=== PATIENT | female | born 1970 | race Caucasian/White ===

== ENCOUNTER → 2016-08-26 | Outpatient (CLI) | payer OTHER ==
[~2016-08-26] MED LIST: BUPR1SUB23 PO; CLIN300C2 PO; GABA-112 PO; GABA-113 PO; GABA1CAP5 PO; OXYC5TAB PO; QUET400T2 PO
[2016-08-26 12:33] LABS: BLOOD UREA NITROGEN 10 mg/dl (7-18); BUN/CREATININE RATIO 13.2 (10-20); CALCIUM 9.1 mg/dl (8.5-10.1); CARBON DIOXIDE 29 mmol/L (21-32); CHLORIDE 103 mmol/L (98-107); CREATININE 0.75 mg/dl (0.60-1.20); GLUCOSE 113 mg/dl (70-99); POTASSIUM 3.9 mmol/L (3.5-5.1); SODIUM 140 mmol/L (136-145)
[2016-08-26 12:41] LABS: BENZODIAZEPINE, URINE POS (NEG); COCAINE,URINE NEG (NEG); PHENCYCLIDINE, URINE NEG (NEG)
[2016-08-26 13:42] LABS: ALKALINE PHOSPHATASE 92 U/L (45-117); ALT/SGPT 29 U/L (12-78); AST/SGOT 18 U/L (15-37); CHOLESTEROL 177 mg/dl (0-200); CHOLESTEROL/HDL RATIO 3.7; HDL CHOLESTEROL 48 mg/dl; LDL CHOLESTEROL CALCULATED 85 mg/dl; TRIGLYCERIDES 222 mg/dl (0-150); VERY LOW DENSITY LIPOPROT CALC 44 mg/dl
[2016-08-30 11:40] LABS: COD UR NEGATIVE NG/ML (CUTOFF=50); HYDROCOD UR NEGATIVE NG/ML (CUTOFF=50); HYDROMOR UR NEGATIVE NG/ML (CUTOFF=50); HYDROXYETHYLFLURAZEPAM CONF NEGATIVE NG/ML (CUTOFF=50); HYDROXYMIDAZOLAM NEGATIVE NG/ML (CUTOFF=50); HYDROXYTRIAZOLAM CONF NEGATIVE NG/ML (CUTOFF=50); MORPHINE UR 660 NG/ML (CUTOFF=50); NORBUPRENORPHINE QNT 237 NG/ML (CUTOFF=2); NORHYDROCODONE CONF UR NEGATIVE NG/ML (CUTOFF=50); OXYMORPH UR NEGATIVE NG/ML (CUTOFF=50); TEMAZEPAM CONF NEGATIVE NG/ML (CUTOFF=50)
== END | disposition home or self-care (01) ==
LOC: C.LAB 11:35
PROVIDERS: ATTEND Psychiatry & Neurology Psychiatry
DX: F11.20 Opioid dependence, uncomplicated (principal); Z79.899 Other long term (current) drug therapy

== ENCOUNTER 2016-11-15 10:48 | Emergency (ER) | payer OTHER ==
[~2016-11-15] VITALS: Ht 162.6 cm; Wt 80.5 kg
[~2016-11-15 10:48] MED LIST changes: -CLIN300C2 PO; -GABA1CAP5 PO
[2016-11-15 10:59] VITALS: BP 135/83; TEMP 36.9; Ht 162.6 cm; Wt 80.5 kg
[2016-11-15] MEDS ORDERED: GABA1CAP5 PO (11:08)
[2016-11-15] MEDS ORDERED: GABA-113 PO (11:08)
--- NOTE | 2016-11-15 11:57 | EMERGENCY ROOM VISIT NOTE ---
ED Visit Note First contact with patient: 11:12 CHIEF COMPLAINT: Infection of the right forearm HISTORY OF PRESENT ILLNESS: This 46-year-old female patient presents to the emergency department after they noticed a hard, red, tender area over the past few days. It is slowly getting larger, more painful and tender. No fever, chills, or loss of appetite. There has been no drainage from the area. There was no known injury to the area preceding the infection. They rate the pain as aching and 8/10. Tetanus shot is up to date. They have tried Advil for the pain, last dose last night, minimal relief. The patient is not diabetic. The patient has no history of subcutaneous abscesses. REVIEW OF SYSTEMS: A review of systems was performed with positives and pertinent negatives listed in the history of present illness. All other systems were reviewed and are negative. ALLERGIES: See chart MEDICATIONS: See chart PMH: See chart SOCIAL HISTORY: See chart PHYSICAL EXAM: Vital Signs: Reviewed Nurse's notes, vital signs stable. GENERAL : Pleasant and cooperative, no acute distress, non toxic in appearance, well- developed well-nourished. SKIN: There is an erythematous indurated area on the anterior right forearm which measures about 4 cm in diameter. It is fluctuant but there is no pointing or drainage. There is surrounding area of cellulitis measuring approximately 8 x 15 cm. Capillary refill less than 2 seconds. MUSCULOSKELETAL: There is no limitation of the range of motion of the elbow or wrist of the right arm. EMERGENCY DEPARTMENT COURSE: I examined the patient. Pt did leave the department after being placed in a patient room, staff was unable to locate her for 30 minutes, after which time she did come back to the room stating she went out for a smoke. See nursing documentation for additional information. Verbal consent was obtained to perform the procedure. After saline and Betadine cleansing and 1 mL of 1% buffered lidocaine with epinephrine anesthesia, the abscess was incised with a number 15 scalpel blade. A large amount of purulent material was released with more expressed by pressure. A swab was obtained for culture. The abscess cavity was further probed with a needle security patrol driver and the deep pocket expressed. The abscess cavity was then copiously irrigated with sterile saline under pressure. The area was then packed with bacitracin soaked packing. The area of cellulitis was outlined with a skin marker. The area was cleaned with sterile saline and dressed with bacitracin and a bulky bandage. The patient tolerated the procedure well and reported significant relief of pain after drainage of the abscess. Patient was instructed to follow-up in 48 hours to have the packing removed and have the abscess reassessed due to the area of surrounding cellulitis. Labs were reviewed, mild hypokalemia, no other significant abnormalities and normal WBC count. Patient was given IV dose of clindamycin and sent with prescription for PO clindamycin. The patient was discharged home in stable condition and ambulatory. Current/Historical Medications Scheduled Buprenorphine Hcl-Naloxone Hcl (Suboxone 8-2 Mg), 16 MG PO QAM Clindamycin Hcl (Cleocin), 300 MG PO QID Gabapentin (Neurontin), 300 MG PO TID Gabapentin (Neurontin), 400 MG PO TID Quetiapine Fumarate (Seroquel Xr), 400 MG PO HS Allergies Coded Allergies: No Known Allergies (Verified , 01/11/16) Vital Signs Date Time Temp Pulse Resp B/P (MAP) Pulse Ox O2 Delivery O2 Flow Rate FiO2 11/15/16 13:57 80 18 96 Room Air 11/15/16 10:59 36.9 117 18 135/83 94 Room Air Laboratory Results 11/15/16 12:50 Red Blood Count 4.63, Mean Corpuscular Volume 86.2, Mean Corpuscular Hemoglobin 30.5, Mean Corpuscular Hemoglobin Concent 35.3, Mean Platelet Volume 10.9, Neutrophils (%) (Auto) 61.5, Lymphocytes (%) (Auto) 28.6, Monocytes (%) (Auto) 9.1, Eosinophils (%) (Auto) 0.4, Basophils (%) (Auto) 0.2, Neutrophils # (Auto) 6.02, Lymphocytes # (Auto) 2.80, Monocytes # (Auto) 0.89, Eosinophils # (Auto) 0.04, Basophils # (Auto) 0.02 11/15/16 12:50 Test 11/15/16 12:40 11/15/16 12:50 Urine Color DK YELLOW Urine Appearance CLEAR (CLEAR) Urine pH 5.5 (4.5-7.5) Urine Specific Paulina 1.025 (1.000-1.030) Urine Protein NEG (NEG) Urine Glucose (UA) NEG (NEG) Urine Ketones TRACE (NEG) Urine Occult Blood NEG (NEG) Urine Nitrite NEG (NEG) Urine Bilirubin NEG (NEG) Urine Urobilinogen NEG (NEG) Urine Leukocyte Esterase SMALL (NEG) Urine WBC (Auto) 10-30 /hpf (0-5) Urine RBC (Auto) 0-4 /hpf (0-4) Urine Hyaline Casts (Auto) 1-5 /lpf (0-5) Urine Epithelial Cells (Auto) >30 /lpf (0-5) Urine Bacteria (Auto) NEG (NEG) Urine Opiates Screen NEG (NEG) Urine Methadone, Qualitative NEG (NEG) Urine Barbiturates NEG (NEG) Urine Phencyclidine (PCP) Level NEG (NEG) Ur Amphetamine/Methamphetamine NEG (NEG) MDMA (Ecstasy) Screen NEG (NEG) Urine Benzodiazepines Screen POS (NEG) Urine Cocaine Metabolite NEG (NEG) Urine Marijuana (THC) NEG (NEG) White Blood Count 9.79 K/uL (4.8-10.8) Red Blood Count 4.63 M/uL (4.2-5.4) Hemoglobin 14.1 g/dL (12.0-16.0) Hematocrit 39.9 % (37-47) Mean Corpuscular Volume 86.2 fL (80-100) Mean Corpuscular Hemoglobin 30.5 pg (25-34) Mean Corpuscular Hemoglobin Concent 35.3 g/dl (32-36) Platelet Count 241 K/uL (130-400) Mean Platelet Volume 10.9 fL (7.4-10.4) Neutrophils (%) (Auto) 61.5 % Lymphocytes (%) (Auto) 28.6 % Monocytes (%) (Auto) 9.1 % Eosinophils (%) (Auto) 0.4 % Basophils (%) (Auto) 0.2 % Neutrophils # (Auto) 6.02 K/uL (1.4-6.5) Lymphocytes # (Auto) 2.80 K/uL (1.2-3.4) Monocytes # (Auto) 0.89 K/uL (0.11-0.59) Eosinophils # (Auto) 0.04 K/uL (0-0.5) Basophils # (Auto) 0.02 K/uL (0-0.2) RDW Standard Deviation 42.9 fL (36.4-46.3) RDW Coefficient of Variation 13.5 % (11.5-14.5) Immature Granulocyte % (Auto) 0.2 % Immature Granulocyte # (Auto) 0.02 K/uL (0.00-0.02) Anion Gap 10.0 mmol/L (3-11) Est Creatinine Clear Calc Drug Dose 87.9 ml/min Estimated GFR () 98.7 Estimated GFR (Non- 85.2 BUN/Creatinine Ratio 12.8 (10-20) Calcium Level 8.7 mg/dl (8.5-10.1) Medications Administered Medications (Trade) Dose Ordered Sig/Amadeo Route Start Time Stop Time Status Last Admin Dose Admin Sodium Chloride 1,000 ml @ 999 mls/hr Q1H1M STAT IV 11/15/16 12:06 11/15/16 13:06 DC 11/15/16 12:55 999 MLS/HR Clindamycin Phosphate (Cleocin 600mg/ 54ml D5W) 600 mg ONE ONCE IV 11/15/16 12:15 11/15/16 12:16 DC 11/15/16 13:54 600 MG Ketorolac Tromethamine (Toradol Inj) 15 mg NOW STAT IV 11/15/16 12:06 11/15/16 12:11 DC 11/15/16 12:55 15 MG Departure Information Impression Primary Impression: Cellulitis and abscess of upper arm and forearm Dispostion Home / Self-Care Condition GOOD Prescriptions Clindamycin Hcl (CLEOCIN) 300 Mg Cap 300 MG PO QID for 7 Days, #28 CAP Prov: Rosemary Angel CRNP 11/15/16 Referrals Gloria Tripathi C.R.N.P. (PCP) Patient Instructions ED Abscess Joey, My [facility] Additional Instructions Change the dressing if it becomes soiled or blood-stained and place a new dressing as discussed. Clindamycin 300mg Take 1 pill 4 times a day for 7 days to treat your infection. You may take Tylenol or ibuprofen as needed for pain. You may also apply warm compresses to the area to help with pain. Please return to the emergency department for removal of the packing and recheck of your wound. Return sooner if any problems such as fever, spreading redness or swelling, or increasing pain.
[2016-11-15] MEDS ORDERED: KETOROLAC TROMETHAMINE 30 MG/ML VIAL IV STA (12:06)
[2016-11-15] MEDS ORDERED: SODIUM CHLORIDE 0.9% 1000ML 1,000 ML IV STA (12:06)
[2016-11-15] MEDS ORDERED: LIDO/EPINEPHRINE/SOD BICARB 20 ML VIAL INFIL ONE (12:15)
[2016-11-15] MEDS ORDERED: CLINDAMYCIN 600 MG/54 ML D5W IV ONE (12:15)
[2016-11-15 13:05] LABS: BASO % 0.2 %; BASO ABS # 0.02 K/uL (0-0.2); COMPLETE YES; EOS % 0.4 %; HEMATOCRIT 39.9 % (37-47); IG% 0.2 %; LYMPH % 28.6 %; MEAN CELL VOLUME 86.2 fL (80-100); MEAN CORPUSCULAR HEMOGLOBIN 30.5 pg (25-34); MEAN CORPUSCULAR HGB CONC 35.3 g/dl (32-36); MEAN PLATELET VOLUME 10.9 fL (7.4-10.4); MONO % 9.1 %; NEUT % 61.5 %; PLATELET COUNT 241 K/uL (130-400); RED BLOOD COUNT 4.63 M/uL (4.2-5.4); WHITE BLOOD COUNT 9.79 K/uL (4.8-10.8)
[2016-11-15 13:13] LABS: URINE APPEARANCE CLEAR (CLEAR); URINE BILIRUBIN NEG (NEG); URINE COLOR DK YELLOW; URINE EPITHELIAL CELL AUTO >30 /lpf (0-5); URINE NITRITE NEG (NEG); URINE PH 5.5 (4.5-7.5); URINE SPECIFIC GRAVITY 1.025 (1.000-1.030); UROBILINOGEN NEG (NEG)
[2016-11-15 13:20] LABS: BUN/CREATININE RATIO 12.8 (10-20); CALCIUM 8.7 mg/dl (8.5-10.1); CREATININE 0.83 mg/dl (0.60-1.20); POTASSIUM 3.2 mmol/L (3.5-5.1)
[2016-11-15 13:24] LABS: MANUAL MICROSCOPIC REQUIRED? NO; REVIEW REQ? NO
[2016-11-15 13:38] LABS: BENZODIAZEPINE, URINE POS (NEG); COCAINE,URINE NEG (NEG); PHENCYCLIDINE, URINE NEG (NEG)
[2016-11-15 13:57] VITALS: PULSE 80; O2SAT 96
[2016-11-15] MEDS ORDERED: CLIN300C2 PO (14:55)
[2016-11-19 01:56] LABS: HYDROXYETHYLFLURAZEPAM CONF NEGATIVE NG/ML (CUTOFF=50); HYDROXYMIDAZOLAM NEGATIVE NG/ML (CUTOFF=50); HYDROXYTRIAZOLAM CONF NEGATIVE NG/ML (CUTOFF=50); TEMAZEPAM CONF NEGATIVE NG/ML (CUTOFF=50)
--- NOTE | 2016-11-19 12:46 | Pharmacy Progress Note ---
ED Pharmacist Culture FollowUp Date of Service: Nov 19, 2016. Abscess cx of R forearm from 11/15 is growing 4 organisms: 1) kleb oxytoca 2) aeromonas hydrophilia grp 3) MSSA 4) alpha-hemolytic strep She was discharged on Clindamycin 300mg QID x 7 days Provider had reviewed the results yesterday and asked that patient be placed on Keflex 500mg TID x 5 days (in addition to Clindamycin) as kleb and aeromonas likely not covered with current therapy. Two attempts have been made to contact this patient to alert her of results and need for additional abx therapy. Patient's voicemail is full and we are unable to leave message ([phone]). Will ask catalyst unit operator to seen letter to patient for follow-up.
== END 2016-11-15 14:59 | disposition home or self-care (01) ==
LOC: C.EDB 10:49 → C.EDD 14:59
DX: L03.113 Cellulitis of right upper limb (principal); L02.413 Cutaneous abscess of right upper limb; Z79.899 Other long term (current) drug therapy

== ENCOUNTER 2016-11-17 16:02 | Emergency (ER) | payer OTHER ==
[~2016-11-17] VITALS: Ht 162.6 cm; Wt 81.4 kg
[~2016-11-17 16:02] MED LIST changes: +CLIN300C2 PO; -GABA-112 PO; +GABA1CAP5 PO; -OXYC5TAB PO
[2016-11-17 16:07] VITALS: TEMP 36.5; Ht 162.6 cm; Wt 81.4 kg
[2016-11-17 16:30] VITALS: BP 120/73; PULSE 106; O2SAT 95
--- NOTE | 2016-11-17 18:13 | EMERGENCY ROOM VISIT NOTE ---
ED Visit Note First contact with patient: 16:13 CHIEF COMPLAINT: Abscess recheck. HISTORY OF PRESENT ILLNESS: Ms. Hwang is a 46-year-old white female who ambulates into the ED requesting abscess recheck. Historically patient reports she was seen in this emergency department 2 days ago and had a I&D procedure performed for a right forearm abscess. She reports since being discharged she has been feeling much better and feels like her abscess is improving with decreased redness/swelling. Currently she has no complaints and denies fevers, chills, sweats, increasing redness/swelling, red streaking, fevers, puslike drainage from her wound. PHYSICAL EXAM: Vital Signs: Date Time Temp Pulse Resp B/P (MAP) Pulse Ox O2 Delivery O2 Flow Rate FiO2 11/17/16 16:30 106 18 120/73 95 11/17/16 16:07 36.5 106 18 120/73 95 Room Air General: 46-year-old female in no acute distress, nontoxic-appearing, afebrile and hemodynamically stable. Neurological: Awake, alert and oriented 3. Answering questions appropriately and following commands. No focal motor sensory deficits. Right forearm: Shows a well-healing abscess. Erythema and edema are greatly reduced from line of demarcation. No lymphangitis. Packing was removed and no additional purulent material was not able to be drained. On palpation I did not feel any additional fluctuant or indurated areas in the area the laceration. ED COURSE: Patient is assessed as noted above. Patient's medication list was reviewed. Packing was removed from the patient's abscess. A bandage was placed over the patient's abscess. Patient was educated about today's findings and instructed on her treatment plan ; she verbalizes understanding and agreement with this plan. DISPOSITION: Patient discharged home in stable condition. CLINICAL IMPRESSION: Abscess recheck. Packing removal. Well healing abscess. PLAN: Patient was encouraged to continue her current medications. Patient was encouraged to continue her antibiotics until completed. Patient was educated on signs of worsening infection. Patient was encouraged to follow-up with her family doctor on day 10 of her antibiotics for recheck. Patient was encouraged return the ED for signs of increasing infection or any new/concerning symptoms.
== END 2016-11-17 16:31 | disposition home or self-care (01) ==
LOC: C.EDB 16:04 → C.EDD 16:31
DX: Z48.817 Encounter for surgical aftercare following surgery on the skin and subcutaneous tissue (principal)

== ENCOUNTER → 2016-12-06 | Outpatient (CLI) | payer OTHER ==
[~2016-12-06] MED LIST changes: -CLIN300C2 PO
--- NOTE | 2016-12-06 12:18 | DIAGNOSTIC IMAGING REPORT ---
(CHEST) THORAX WITHOUT CLINICAL HISTORY: 46 years-old Female presenting with ABNORMAL FINDING OF LUNG IMAGING. TECHNIQUE: Multidetector CT angiography was performed without the use of intravenous contrast. IV contrast: None. COMPARISON: 02/15/2016 CT DOSE: The estimated cumulative dose is 423.91 mGy.cm. FINDINGS: Olive Brine Tester topogram: Unremarkable. On soft tissue windows, left thyroid lobe nodule again measures 9 mm. Prominent bilateral subpectoral lymph nodes, the largest on the right measuring 11 x 18 mm and essentially stable from prior (series 4 image 59). No axillary, supraclavicular, or mediastinal lymphadenopathy. Vague infiltration in the anterior mediastinum is less prominent on the current exam. Evaluation of the concepcion is limited without intravenous contrast. No significant atherosclerosis of the aorta. Normal heart size. No pericardial or pleural effusion. Upper abdomen normal. On lung windows, previously noted right middle lobe nodule measures 2 mm (series 4 image 157), unchanged. No new pulmonary nodule. Airways patent. On bone windows, normal osseous structures. IMPRESSION: 1. Stable enlarged subpectoral lymph nodes, possibly reactive and of uncertain etiology. Correlate clinically. 2. Stable 2 mm pulmonary nodule for which no further follow-up is warranted. 3. No acute intrathoracic pathology. Electronically signed by: Humberto Vee M.D. 12/06/2016 12:17 PM Dictated Date/Time: 12/06/2016 12:06 PM
== END | disposition home or self-care (01) ==
LOC: C.CTS 11:34
PROVIDERS: ATTEND Nurse Practitioner Adult Health
DX: R91.8 Other nonspecific abnormal finding of lung field (principal); R91.1 Solitary pulmonary nodule; R59.0 Localized enlarged lymph nodes

== ENCOUNTER → 2016-12-31 | Outpatient (CLI) | payer OTHER ==
--- NOTE | 2017-01-01 05:59 | PAP/PSG TECHNICIAN REPORT ---
[facility] Central Control Room Operator Polysomnogram Report Study name: None Report date: 01/01/2017 Study date: 12/31/2016 Referring Physician: Mavis Daley PA-C Name: HOWARD HARRINGTON Interpreting Physician: Karlos Bull M.D. Date of : 1970 Central Control Room Operator: Teddy Resendez RPSGT. Sex: Female Age: 46 StudyType: PSG Weight: 181 lbs 14 inches Height: 46 years, Height 5' 5" Neck Circum: BMI: 30.12 Medications: GABAPENTIN 600 MG, SEROQUEL 400 MG, SUBOXONE 8-2MG, VITAMIN D Patient History PATIENT HAS HISTORY OF BIPOLAR, ANXIETY AND PTSD. SHE ALSO HAS HISTORY OF RESTLESS SLEEP, TROUBLE MAINTAINING SLEEP AND SNORING. SHE OCCASIONALLY GETS HEADACHES DURING THE DAY. SHE IS HERE TODAY FOR AN EVALUATION OF ARLENE. ESS = 8 RM 5 Parameters Monitored NPSG: E1-M2, E2-M1, Fp1-M2, Fp2-M1, F3-M2, F4-M2, F4-M1, C3-M2, C4-M2, C4-M1, O1-M2, O2-M2, O2-M1, T3-M2, T4-M1, P3-M2, P4-M1, CHIN1, CHIN2, HR, EKG, Legs, PFLOW, SNOR, FLOW, CFLOW, Tidal Volume, THOR, ABDO, SpO2, PLTH, CPRESS, ETCO2 Wave, ETCO2, pH Sleep Architecture Sleep Stages Time at Lights Off 10:43:35 PM STAGES Time (min.) TST (%) Time at Lights On 5:39:35 AM Wake 70.0 -- Total Recording Time (TRT) 416.50 min. N1 12.0 3 Total Sleep Period (TSP) 357.0 min. N2 272.0 79 Total Sleep Time (TST) 346.0min. N3 15.0 4 Awake Time 70.0 min. REM 47.0 14 Wake after Sleep Onset 11.0 min. Sleep Efficiency (SE) 83 % Sleep Onset Latency (LUC) 59.0 min. Number of Stage 1 Shifts None Awakenings 12 Stage Changes 85 Number of REM periods 1 REM 47.0 14 REM Latency 236.5 min. NREM 299.0 86 Body Position Analysis Supine Right Left Side Prone Vertical Total Sleep Time (min.) 51.8 17.0 279.7 296.68 0.0 0.0 Total Sleep Time (%) 14% 5% 81% 86 0% N/A% Total Sleep Time REM (min.) 0.0 0.0 47.0 None 0.0 0.0 Total Sleep Time NREM (min.) 49.3 17.0 232.7 None 0.0 0.0 Intermittent Wake (min.) 2.5 62.2 5.3 None 0.0 0.0 Total Sleep Period (%) 15% None None None None None Arousals Myoclonus (PLM) * Events Count Index Events Count Index Spontaneous 22 4 Events Awake (PLMW) 72 61.7 Respiratory 4 0.7 Events Asleep w/ Arousal (PLMA) 4 0.7 PLM 4 1 Events Asleep w/o Arousal (PLMS) 51 8.8 Snoring 4 1 Total Asleep 55 9.5 Total 34 6 Total 127 18 Respiratory Analysis * CA OA MA CH H RERA Total Count 0 0 0 0 6 2 6 Index 0.0 0.0 0.0 0 1.0 0 1.4 Mean Duration 0.0 0.0 0.0 0.00 17.8 16.7 17.5 Longest Duration 0.0 0.0 0.0 0.00 0.0 17.3 23.1 Respiratory Event Summary Total Supine ~Supine Right Left Prone REM NREM Apneas Count 0 0 0 0 0 N/A 0 0 Index 0.0 0 0 0.0 0.0 N/A 0 0 Hypopneas (4% Desat) Count 6 4 2 0 2 N/A 2 4 Index 1.0 4.9 0 0.0 0.4 N/A 2.6 0.8 Apneas & All Hypopneas Count 6 4 2 0 2 N/A 2 4 Index 1.0 5 0 0 0 N/A 2.6 0.8 Respiratory Events (Frameman+All Hyp+RERA) Count 6 6 2 0 2 N/A 2 4 Index 1.4 7 0 0.0 0.4 N/A 2.6 1.2 Respiratory Related Arousal Count 4 6 0 0 0 N/A 0 4 Index 0.7 5 0 0 0 N/A 0 1 Snoring Analysis Supine Right Left Prone REM NREM Total Snore duration 3.0 min Snores count 17 0 113 N/A 31 99 130 Snore mean duration 1.4 Sec Snores index 21 0 24 N/A 39.6 19.9 22.5 TST with snoring (%) 0.9% Desaturation Event Summary: Minimum %SpO2 Event Count Mean/Min/Max Duration(sec.) Desaturation Index % Time In Bed > 90 9 31.1 / 4.8 / 54.5 1.3 99.7 86 - 90 2 14.3 / 10.3 / 18.3 96.6 0.3 81 - 85 0 N/A 0.0 0.0 76 - 80 0 N/A 0.0 0.0 71 - 75 0 N/A 0.0 0.0 66 - 70 0 N/A 0.0 0.0 61 - 65 0 N/A 0.0 0.0 56 - 60 0 N/A 0.0 0.0 51 - 55 0 N/A 0.0 0.0 < 50 0 N/A 0.0 0.0 Total REM NREM Awake <50% 0.0 min. 0.0 min. 0.0 min. 0.0 min. 51 - 60% 0.0 min. 0.0 min. 0.0 min. 0.0 min. 61 - 70% 0.0 min. 0.0 min. 0.0 min. 0.0 min. 71 - 80% 0.1 min. 0.0 min. 0.0 min. 0.1 min. 81 - 90% 1.2 min. 0.0 min. 1.0 min. 0.3 min. 91 - 100% 411.3 min. 47.0 min. 295.1 min. 69.2 min. Average 94 95 93 96 Minimum SpO2 79 92 88 79 Desaturation Event Index 1.4 2.6 1.0 3.4 # Desat. Events below 89% 3 N/A 1 2 Time(%) with Saturation below 89% 0.1 0.0 0.0 0.1 Time(min.) with Saturation below 89% 0.3 0.0 0.1 0.3 Time (mins) REM (mins) NREM (mins) % of TST SpO2 Below 90% 4 N/A N4 0.1 SpO2 Below 88% 1 0 0 0 Heart Rate Analysis Min (bpm) Max (bpm) Average (bpm) Awake 64 127 86 NREM 65 89 76 REM 71 87 80 Overall 65 89 77 Supplemental O2 Values Minimum O2 level: None Value Start Time End Time Central Control Room Operator Comments Mrs. Harrington slept in the right, left and supine positions. No cardiac arrhythmia noted. Leg movements noted. No bruxism noted. Snoring was noted and scored as a 1 on a scale of 1 through 5. (0=no snoring, 5=snoring loud enough to be heard through a closed door or down the borreg[address] way) Mrs. Harrington awoke to use the restroom 0 times during the night. Mrs. Harrington stated I did not sleep as well as I do when I am in my own bed. The final report will be interpreted and signed by a sleep physician. The completed physician report will then be placed in the patient medical record. Therapy (cm H2O) 0 TIB (min.) 416.0 TST (min.) 346.0 Sleep Onset (min.) 59.0 REM Onset From Sleep (min.) 236.5 Sleep Efficiency % 83 Wakefulness (%) 17 Wakefulness (min.) 70.0 NREM 1 (%) 3 NREM 1 (min.) 12.0 NREM 2 (%) 79 NREM 2 (min.) 272.0 NREM 3 (%) 4 NREM 3 (min.) 15.0 REM (%) 14 REM (min.) 47.0 # Arousals 34 Arousal Index 6 # Snore 130 Snore Index 22.5 AHI 1.0 AHI Supine 5 AHI Non-Supine 0 NREM AHI 0.8 REM AHI 2.6 RDI 1.4 # Obstructive Apnea 0 # Central Apnea 0 # Mixed Apnea 0 # Hypopneas 6 RERAs 2 Total Respiratory Events 8 Time Below SpO2 89% (min.) 0.1 Mean NREM SpO2 (%) 93 Mean REM SpO2 (%) 95 Mean Sleep SpO2 (%) 94 Min NREM SpO2 (%) 88 Min REM SpO2 (%) 92 Position Supine (min.) 51.8 Position Non-supine (min.) 296.7 LM Index Sleep 9.5 LM Index NREM 9.2 LM Index REM 11.5 Mean Heart Rate (bpm) 77 Min Heart Rate (bpm) 65
--- NOTE | 2017-01-01 12:58 | POLYSOMNOGRAPH REPORT ---
CLINICAL DATA: 46-year-old female with a BMI of 30 referred by Mavis Daley and myself with a history of bipolar disorder, anxiety, and PTSD. She has restless sleep, trouble maintaining sleep and snoring. She has occasional daytime headaches. Her Montezuma sleepiness score is 8/24. SLEEP ARCHITECTURE: Total recording time was 416.5 minutes. Total sleep period was 357 minutes. Total sleep time was 346 minutes divided between 299 minutes of non-REM sleep and 47 minutes of REM sleep. Sleep onset latency was delayed at 59 minutes time. REM latency was delayed at 236.5 minutes. Sleep efficiency was mildly reduced at 82%. Wake after sleep onset was 11 minutes. Sleep consisted of stage N1 3%, stage N2 79%, stage N3 4%, and REM 14%. AROUSAL DATA: 34 arousals were recorded for an index of 6 per hour. PLM DATA: 55 limb movements during sleep were noted for an index was 9.5 per hour with arousal index of 0.7 per hour. RESPIRATORY DATA: There was no evidence of clinically significant sleep apnea/hypopnea seen. The AHI was 1. There were 6 hypopneic episodes with the mean duration of 17.8 seconds. OXIMETRY DATA: No significant hypoxemia was seen. The oxygen sincere was 88%. Mean saturation was 94%. EKG: Heart rates ranged from 65-89 beats per minute. No arrhythmias were noted. DESKTOP SUPPORT SPECIALIST'S COMMENTS: The patient slept in the right, left, and supine positions. No bruxism was noted. Snoring was mild rated 1 on a scale of 1-5. IMPRESSION: No evidence of clinically significant sleep apnea/hypopnea with an AHI of 1 with no evidence of nocturnal hypoxemia or PLMD. RECOMMENDATIONS: The patient should continue to practice good sleep hygiene. Treatment for insomnia or psychiatric conditions may be of benefit. Clinical correlation is needed.
== END | disposition home or self-care (01) ==
LOC: C.NEUR 21:00
PROVIDERS: ATTEND Physician Assistant Medical
DX: G47.8 Other sleep disorders (principal); F51.3 Sleepwalking [somnambulism]

== ENCOUNTER → 2017-03-07 | Outpatient (CLI) | payer OTHER ==
[2017-03-07 13:41] LABS: BENZODIAZEPINE, URINE POS (NEG); COCAINE,URINE NEG (NEG); PHENCYCLIDINE, URINE NEG (NEG)
== END | disposition home or self-care (01) ==
LOC: C.LAB1850 11:57
PROVIDERS: ATTEND Psychiatry & Neurology Psychiatry
DX: F11.20 Opioid dependence, uncomplicated (principal)

== ENCOUNTER → 2017-06-25 | Outpatient (CLI) | payer OTHER ==
[2017-06-25 12:34] LABS: ALKALINE PHOSPHATASE 89 U/L (45-117); ALT/SGPT 19 U/L (12-78); AST/SGOT 11 U/L (15-37); TOTAL PROTEIN 7.8 gm/dl (6.4-8.2)
== END | disposition home or self-care (01) ==
LOC: C.LAB1850 10:41
PROVIDERS: ATTEND Psychiatry & Neurology Psychiatry
DX: Z51.81 Encounter for therapeutic drug level monitoring (principal); F11.20 Opioid dependence, uncomplicated; Z79.899 Other long term (current) drug therapy

== ENCOUNTER 2017-07-07 16:26 | Emergency (ER) | payer OTHER ==
[~2017-07-07] VITALS: Ht 162.6 cm; Wt 82.8 kg
[~2017-07-07 16:26] MED LIST changes: +GABA-1220 PO; -GABA1CAP5 PO
[2017-07-07 17:16] VITALS: TEMP 36.4; Ht 162.6 cm; Wt 82.8 kg
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
[2017-07-07 19:10] VITALS: BP 122/76; PULSE 78; O2SAT 98
== END 2017-07-07 19:11 | disposition home or self-care (01) ==
LOC: C.EDB 16:28 → C.EDD 19:11
DX: M79.671 Pain in right foot (principal); M25.551 Pain in right hip; M54.2 Cervicalgia; V89.2XXD Person injured in unspecified motor-vehicle accident, traffic, subsequent encounter; F31.9 Bipolar disorder, unspecified; E03.9 Hypothyroidism, unspecified; F43.10 Post-traumatic stress disorder, unspecified; Q61.9 Cystic kidney disease, unspecified; Q63.9 Congenital malformation of kidney, unspecified; F17.210 Nicotine dependence, cigarettes, uncomplicated; Z80.9 Family history of malignant neoplasm, unspecified; Z82.49 Family history of ischemic heart disease and other diseases of the circulatory system; Z79.899 Other long term (current) drug therapy

== ENCOUNTER 2019-07-24 08:03 | Observation (INO) ==
--- NOTE | 2019-07-15 14:08 | Anesthesiology Consultation ---
Date of Service July 15, 2019 Assessment & Plan (1) Encounter for pre-operative examination: - Check test AM DOS Chart Review Chart Review: Acceptable Risk for Surgery and Patient NOT seen in Pre Admission Testing History Surgery Operation Date: 07/24/19 13:10 Proposed Procedures p Robotic Total Laparoscopic Hysterectomy, Bilateral Oophorectomy - Marcus Miner MD Height/Weight Height: 5 ft 3 in Weight: 84.822 kg Allergies Allergy/AdvReac Type Severity Reaction Status Date / Time adhesive tape Allergy Mild Rash Verified 07/15/19 12:02 Medications Home Medications Medication Instructions Recorded Confirmed Last Taken buprenorphine 8 mg-naloxone 2 mg 2 tab SL QAM tab 03/27/19 07/15/19 Unknown sublingual tablet clonidine HCl 0.1 mg tablet 0.1 mg PO HS tab 03/27/19 07/15/19 Unknown quetiapine 400 mg tablet,extended 400 mg PO HS 03/27/19 07/15/19 Unknown release 24 hr gabapentin 300 mg capsule 300 mg PO UD 03/30/19 07/15/19 Unknown cholecalciferol (vitamin D3) 1,250 50,000 units PO WEEKLY 84 Days #12 04/01/19 07/15/19 Unknown mcg (50,000 unit) capsule cap ibuprofen [Advil] 200 mg PO Q6H PRN 05/04/19 07/15/19 Unknown Past Medical History Medical History Anxiety Bipolar 1 disorder (Chronic) Migraine Obesity Post endometrial ablation syndrome PTSD (post-traumatic stress disorder) Uterine fibroid Past Family History Family History Grandmother Breast cancer Denies family history of Ovarian cancer Prostate cancer Myocardial infarction Colorectal cancer Past Surgical History Surgical History H/O laparoscopy with fulguration of oviducts S/P endometrial ablation S/P tonsillectomy and adenoidectomy Status post tubal ligation Social History Smoking Status: Current every day smoker tobacco type: cigarettes Smoking cigarettes per day: 15 Do You Dip or Chew Tobacco: No Hx Alcohol Use: Yes alcohol intake frequency: holidays/special occasions only Hx Substance Use: No substance use type: former substance user and heroin Testing Laboratory Results 07/13/19 WBC 5.92 H/H 13.5/39.4 PLATELETS 195 05/08/19 T&S A+Ab- 03/31/19 SODIUM 138 POTASSIUM 4.0 CHLORIDE 106 CO2 27 BUN 10 CREATININE 0.87 GLUCOSE 99 Chest X-Ray Date: 11/24/18 Findings: + NAD
[~2019-07-24 08:03] MED LIST changes: +ACETAMINOPHEN 1000 MG/100 ML IV IV ONE; -BUPR1SUB23 PO; +CEFAZOLIN 2000MG 2,000 MG/15 ML SYR IV SCH; -GABA-113 PO; -GABA-1220 PO; +LACTATED RINGER'S 1,000 ML IV SCH; +LR 15ML/HR IV SCH; +PHENAZOPYRIDINE HCL 100 MG TAB PO SCH; -QUET400T2 PO
[2019-07-24] MEDS ORDERED: MIDAZOLAM HCL 1 MG/ML 2ML VIAL ONE (08:28)
[2019-07-24] MEDS ORDERED: fentaNYL citrate 100 MCG/2 ML VIAL ONE ×2 (08:28→11:21)
[2019-07-24 08:48] LABS: Basophils # (auto) 0.02 K/uL (0-0.2); Basophils % (auto) 0.3 %; Hematocrit (blood only) 39.5 % (37-47); Hemoglobin 13.3 g/dL (12.0-16.0); Immature Granulocytes # (auto) 0.01 K/uL (0.00-0.02); Immature Granulocytes % (auto) 0.2 %; Lymphocytes # (auto) 2.55 K/uL (1.2-3.4); Lymphocytes % (auto) 38.6 %; Mean Corpuscular Hemoglobin 30.6 pg (25-34); Mean Platelet Volume 11.3 fL (7.4-10.4); Monocytes # (auto) 0.89 K/uL (0.11-0.59); Monocytes % (auto) 13.5 %; Neutrophils # (auto) 2.93 K/uL (1.4-6.5); Neutrophils % (auto) 44.4 %; Platelet Count 214 K/uL (130-400); RDW Coefficient of Variation 13.8 % (11.5-14.5); RDW Standard Deviation 45.5 fL (36.4-46.3); Red Blood Count 4.34 M/uL (4.2-5.4)
[2019-07-24] MEDS ORDERED: BUPIVACAINE 0.5 % 5 MG/1 ML MPF 30ML VIAL ONE (08:51)
[2019-07-24] MEDS ORDERED: ROCURONIUM BROMIDE 10 MG/ML 5 ML VIAL ONE (08:54)
[2019-07-24] MEDS ORDERED: LIDOCAINE HCL 2% 2 ML VIAL/AMP(20MG/ML) INFIL ONE (08:54)
[2019-07-24] MEDS ORDERED: PROPOFOL IV EMULSION 10 MG/ML 20 ML VIAL IV ONE (08:54)
[2019-07-24] MEDS ORDERED: ONDANSETRON INJ 2 MG/ML 2 ML VIAL ONE (08:55)
[2019-07-24] MEDS ORDERED: DEXAMETHASONE SOD INJ 4 MG/ML VIAL ONE (08:55)
[2019-07-24 08:56] LABS: Mean Corpuscular Hgb Conc 33.7 g/dL (32-36)
[2019-07-24] MEDS ORDERED: ATROPINE SULFATE 0.1 MG/ML 10ML SYR IV PRN (09:01)
[2019-07-24] MEDS ORDERED: ONDANSETRON INJ 2 MG/ML 2 ML VIAL IV PRN ×2 (09:01→11:18)
[2019-07-24] MEDS ORDERED: ePHEDrine sulfate 50 MG/ML AMP IV PRN (09:01)
[2019-07-24] MEDS ORDERED: PROMETHAZINE HCL 12.5 MG in SODIUM CHLORIDE 0.9% 50 ML IV PRN ×2 (09:01→11:18)
--- NOTE | 2019-07-24 09:21 | History & Physical Bridge Note ---
Date of Service July 24, 2019 History & Physical Bridge Note I have examined the patient, reviewed the History & Physical and in the interval since the performance of the History & Physical I have noted the following changes of clinical significance: no changes noted
[2019-07-24] MEDS ORDERED: NEOSTIGMINE METHYLSULFATE 5 MG/5 ML SYR ONE (10:38)
[2019-07-24] MEDS ORDERED: GLYCOPYRROLATE 0.2 MG/ML VIAL ONE (10:38)
[2019-07-24] MEDS ORDERED: TISSEEL FIBRIN SEALANT 4ML TOP ONE (10:41)
[2019-07-24] MEDS ORDERED: OXYCODONE/ACETAMINOPHEN 5mg/325mg TAB PO PRN (11:18)
[2019-07-24] MEDS ORDERED: ACETAMINOPHEN 325 MG TAB PO PRN (11:18)
[2019-07-24] MEDS ORDERED: SIMETHICONE 80 MG CHEW PO PRN (11:18)
--- NOTE | 2019-07-24 11:18 | Post Operative Brief Note ---
PG Immediate Post Op with CF Date of Surgery July 24, 2019 Pre & Post Diagnosis Operation Date: 07/24/19 09:20 Pre-Op Diagnosis: Post Endometrial Ablation Syndrome, Chronic pelvic pain Post-Op Diagnosis: Post Endometrial Ablation Syndrome, Chronic pelvic pain I identified the patient and participated in the time-out.: Yes Procedure Operation Date: 07/24/19 09:20 Actual Procedures p Robotic Total Laparoscopic Hysterectomy, Bilateral Oophorectomy(Not Applicable) - Marcus Miner MD Complications: None Surgeon Marcus Miner MD Slunk Skinner None Estimated Blood Loss 20 Findings Consistent with Post-Op Diagnosis Specimens Specimen Description: Permanent specimen: A. Uterus, cervix and bilateral ovaries and fallopian tubes Drains White Catheter
[2019-07-24] MEDS ORDERED: HYDROmorphone INJ 2 MG/ML SYR/VIAL ONE (11:25)
[2019-07-24] MEDS: fentaNYL citrate 100 MCG/2 ML VIAL IV PRN ×2 (11:40→11:48)
[2019-07-24] MEDS: HYDROmorphone INJ 0.5 MG/0.5 ML SYR IV PRN ×4 (11:59→12:19)
--- NOTE | 2019-07-24 12:07 | Operative Report ---
DATE OF OPERATION: 07/24/2019 PROCEDURE: Total laparoscopic hysterectomy, bilateral salpingo-oophorectomy and cystoscopy. SURGEON: Marcus Miner MD. PREOPERATIVE DIAGNOSES: 1. Chronic pelvic pain. 2. Suspected post-ablation syndrome. 3. Failed ablation. POSTOPERATIVE DIAGNOSES: 1. Chronic pelvic pain. 2. Suspected post-ablation syndrome. 3. Failed ablation. 4. Status post procedure. ESTIMATED BLOOD LOSS: 20 mL. DRAINS: White catheter. FLUIDS: Continuous lactated Ringer. URINE OUTPUT: Per Wihte catheter. COMPLICATIONS: None. FINDINGS: There was noted to be a normal-appearing uterus, distal fallopian tube remnants and ovaries bilaterally. There is noted to be bilateral ureteral efflux and intact bladder on cystoscopy at the completion of the case. DESCRIPTION OF PROCEDURE: The patient was taken to the operating room after consents were ensured. Upon presentation, she was properly identified. General endotracheal anesthesia was then obtained without difficulty. The patient was then prepped and draped in normal sterile fashion. Preprocedural timeout was performed. The VCare uterine manipulator and White catheter were then placed per normal protocols. The laparoscopic portion of the case was then initiated. A 12 mm incision was made on the superior aspect of the umbilicus. A Veress needle was inserted through the incision. Abdomen was insufflated to 15 mmHg. There was noted to be symmetric abdominal rise and tympany over the liver and opening pressure of 5 mmHg, all consistent with appropriate intra-abdominal insufflation. A 12 mm optically guided trocar was then introduced through the incision and immediate inspection was notable for atraumatic entry. The patient was then placed in deep Trendelenburg and abdomen and pelvis were inspected with findings as above. An 8 mm incision was then made in the right and left lower quadrants and 8 mm trocars were introduced into the abdomen under direct visualization with atraumatic entry noted. A 5 mm trocar was placed in the left upper quadrant under direct visualization. The robot was then docked and the robotic portion of the case was initiated. The left IP ligament was identified and the ureter was noted to be quite distal to the IP ligament, and the IP ligament was serially cauterized and dissected to the level of the round ligament. The round ligament was then cauterized and dissected joining with the dissection started from the IP ligament. The bladder flap was then initiated on the left side carrying over to the right side stopping around the midline. The broad ligament was then dissected to the level of the uterine vessels and the uterine vessels were skeletonized. The right side of the hysterectomy was then performed. The right IP ligament was identified and the ureter was noted to be distal to the right ureter. The IP ligament was then serially cauterized and dissected joining to the level of the round ligament. The round ligament was cauterized and dissected joining to the IP ligament pedicle. The bladder flap was then continued anteriorly from the right side, connecting to the left. The bladder was dissected off of the lower uterine segment and cervix, exposing the VCare uterine manipulator cup. The uterine vessels on the right side were then skeletonized and serially cauterized. The left-sided uterine vessels were then also serially cauterized and dissected. The right-sided vessels were then dissected as well and then the colpotomy was started anteriorly and continued circumferentially around the cervix, freeing the cervix from the vagina. The uterus, cervix, fallopian tubes and ovaries were then delivered through the vaginal cuff and sent to pathology for evaluation. The vaginal cuff was then reapproximated with V-Loc suture and an airtight seal was noted. Tisseel was then placed over all vascular pedicles and the laparoscopic portion of the case was ended. The abdomen was desufflated and a cystoscopy was performed and there was noted to be bilateral ureteral efflux and intact bladder on cystoscopy. The cystoscopy was then ended. The trocars were removed. Fascia at the umbilical incision was then reapproximated with 0 Vicryl in single interrupted stitch. The skin incision was reapproximated with 4-0 Monocryl in single interrupted stitch. 12 mL of lidocaine was distributed throughout the 4 incisions; Dermabond was placed on top of all incisions. Needle, sponge and instrument counts were correct at the completion of the case. The patient was awoken from anesthesia and taken to recovery room in stable condition. I attest to the content of the Intraoperative Record and any orders documented therein. Any exception s are noted below.
--- NOTE | 2019-07-24 12:30 | Anesthesiology Progress Note ---
Date of Service July 24, 2019 Anesthesia Post Procedure Vital Signs Vital Signs: Temp Pulse Pulse Resp BP BP Pulse Ox 07/24/19 12:20 36.9 C 78 21 124/82 97 07/24/19 12:10 72 16 112/86 95 07/24/19 12:00 67 13 127/76 96 07/24/19 11:50 69 18 111/66 98 07/24/19 11:40 63 21 112/69 98 07/24/19 11:32 36.5 C 67 17 110/64 97 07/24/19 08:37 36.6 C 110 H 18 134/79 96 Pain Intensity Lower Back: Pain Intensity: 7 Abdomen: Pain Intensity: 4 Transfer of Care Handoff Completed per policy Notes Mental Status: alert / awake / arousable and participated in evaluation Patient Amnestic to Procedure: Yes Nausea / Vomiting: adequately controlled Pain: adequately controlled Airway Patency, RR, SpO2: stable & adequate BP & HR: stable & adequate Hydration State: stable & adequate Anesthetic Complications: no major complications apparent and Pt Satisfied with anesthetic care
[2019-07-24] MEDS: IBUPROFEN 600 MG TAB PO PRN ×2 (14:16→17:53)
[2019-07-24] MEDS: OXYCODONE/ACETAMINOPHEN 5mg/325mg TAB PO PRN ×2 (14:17→17:54)
[2019-07-24] MEDS ORDERED: cloNIDine HCL 0.1 MG TAB PO SCH (21:00)
[2019-07-24] MEDS ORDERED: GABAPENTIN 300 MG CAP PO SCH (21:00)
[2019-07-24] MEDS ORDERED: QUETIAPINE FUMARATE 200 MG TABCR PO SCH (21:00)
[2019-07-25] MEDS ORDERED: GABAPENTIN 600 MG TAB PO SCH (08:00)
--- NOTE | 2019-07-25 19:06 | Discharge Summary ---
REASON FOR ADMISSION: Planned laparoscopic hysterectomy, bilateral salpingo-oophorectomy and cystoscopy with recovery postop. HOSPITAL COURSE: The patient was admitted for the above-noted procedure. The procedure was performed without complication. The patient was admitted for observation for her recovery course. The patient recovered well without any concerns. She met criteria for discharge approximately 4-6 hours after the procedure and was requesting discharge. At that time, both written and verbal discharge instructions were provided for her and all questions were answered to her satisfaction. I recommended a followup in 2 weeks for routine postoperative care and recommended that she seek care with me sooner if any issues arise. The patient was agreeable and was discharged home in stable condition.
== END 2019-07-24 18:20 | disposition home or self-care (01) ==
LOC: ASU 08:03 → 4N 08:03